=== PATIENT | female | born 1975 | race Two or more races ===

== ENCOUNTER 2021-12-06 22:48 | Emergency (ER) | payer OTHER ==
[2021-12-06 23:01] VITALS: BP 143/102; PULSE 100; RESP 17; TEMP 99; BMI 27.8
[2021-12-06] MEDS ORDERED: ONDANSETRON 4 MG/2 ML VIAL IVPB ONE (23:10)
[2021-12-06] MEDS ORDERED: SODIUM CHLORIDE 1,000 ML IV ONE (23:14)
[2021-12-06] MEDS ORDERED: ONDANSETRON 4 MG/2 ML VIAL ONE (23:22)
== END 2021-12-07 00:09 | disposition home or self-care (01) ==
LOC: FER 22:48
PROC: 3E033GC Introduction of Other Therapeutic Substance into Peripheral Vein, Percutaneous Approach (ICD-10-PCS; principal; 2021-12-06)
DX: U07.1 COVID-19 (principal); R11.2 Nausea with vomiting, unspecified
CPT/HCPCS: 82962; 96374; 99284-25

== ENCOUNTER 2023-10-16 20:04 | Observation (INO) | payer OTHER ==
[2023-10-16 20:59] LABS: HEMATOCRIT 46.3 % (32.4-45.2); HEMOGLOBIN 15.3 G/dL (10.7-15.3); MCH 30.5 pg (25.7-33.7); MEAN CELL VOLUME 92.6 fl (80-96); MEAN PLT VOLUME 8.4 fl (7.5-11.1); PLATELET COUNT 201.6 10^3/uL (134-434); WHITE BLOOD COUNT 6.7 10^3/uL (4.0-10.8)
[2023-10-16 21:13] LABS: INR 0.87 (0.83-1.09)
[2023-10-16 21:15] LABS: ALBUMIN 4.1 g/dl (3.4-5.0); ALK PHOS 197 U/L (45-117); ANION GAP 8 mmol/L (4-13); BILIRUBIN,TOTAL 0.5 mg/dl (0.2-1); CALCIUM 9.5 mg/dl (8.5-10.1); CHLORIDE 99 mmol/L (98-107); CO2 28 mmol/L (21-32); CREATININE 0.7 mg/dl (0.6-1.3); GLUCOSE,RANDOM 345 mg/dl (74-106); MAGNESIUM 1.7 mg/dL (1.8-2.4); SGOT/AST 32 U/L (15-37); SGPT/ALT 32 U/L (7-52); SODIUM 135 mmol/L (136-145); TOT PROT 7.8 g/dl (6.4-8.2)
[2023-10-16] MEDS: SODIUM CHLORIDE 1,000 ML IV ONE (21:56)
[2023-10-16] MEDS ORDERED: INSULIN REGULAR HUMAN 100 UNITS/ML *VIAL ONE (21:59)
[2023-10-16] MEDS: INSULIN REGULAR HUMAN 100 UNITS/ML *VIAL IVPUSH STA (22:01)
[2023-10-16] MEDS ORDERED: PANTOPRAZOLE 40 MG TABLET PO ONE (23:30)
[2023-10-16] MEDS: PANTOPRAZOLE 40 MG TABLET PO ONE (23:34)
[2023-10-17 01:08] LABS: URINE APPEARANCE CLEAR; URINE BILIRUBIN NEGATIVE (NEGATIVE); URINE COLOR YELLOW; URINE GLUCOSE (UA) 3+ (NEGATIVE); URINE KETONE NEGATIVE (NEGATIVE); URINE LEUK ESTERASE NEGATIVE (NEGATIVE); URINE NITRITE NEGATIVE (NEGATIVE); URINE PROTEIN NEGATIVE (NEGATIVE); URINE UROBILINOGEN 0.2 mg/dL (0.2-1.0)
[2023-10-17] MEDS ORDERED: ACETAMINOPHEN 500 MG TABLET (FP) ONE (01:11)
[2023-10-17] MEDS ORDERED: ASPIRIN 81 MG CHEWABLE TABLETS ONE (01:11)
[2023-10-17] MEDS: ACETAMINOPHEN 500 MG TABLET (FP) PO ONE (01:15)
[2023-10-17] MEDS: ASPIRIN 81 MG CHEWABLE TABLETS PO ONE (01:16)
[2023-10-17 01:42] VITALS: RESP 18; BMI 30.1
[2023-10-17] MEDS ORDERED: DOCUSATE SODIUM 100 MG CAPSULE (FP) PO PRN (02:01)
[2023-10-17] MEDS ORDERED: ACETAMINOPHEN 325 MG TABLET (FP) PO PRN ×2 (02:01→08:49)
[2023-10-17] MEDS ORDERED: MELATONIN 5 MG TABLETS PO PRN (02:12)
[2023-10-17] MEDS: MAGNESIUM SULFATE IN WATER 2 GM/50 ML IVPB IVPB ONE (02:15)
[2023-10-17] MEDS ORDERED: MAG HYDROX/AL HYDROX/SIMETH 30 ML UNIT-DOSE CUP PO PRN (02:20)
[2023-10-17] MEDS: INSULIN ASPART SLIDING SCALE (NOVOLOG) 1 VIAL SQ SCH (06:08)
[2023-10-17 08:06] LABS: ANION GAP 6 mmol/L (4-13); CALCIUM 8.7 mg/dl (8.5-10.1); CHLORIDE 102 mmol/L (98-107); CO2 28 mmol/L (21-32); CREATININE 0.6 mg/dl (0.6-1.3); GLUCOSE,RANDOM 271 mg/dl (74-106); POTASSIUM 3.9 mmol/L (3.5-5.1); SODIUM 136 mmol/L (136-145)
[2023-10-17 09:16] LABS: BASO % 0.4 % (0-2.0); EOS % 1.4 % (0-4.5); HEMATOCRIT 40.9 % (32.4-45.2); HEMOGLOBIN 13.8 GM/dL (10.7-15.3); LYMPH % 34.2 % (8-40); MCH 30.7 pg (25.7-33.7); MCHC 33.7 g/dl (32.0-36.0); MEAN CELL VOLUME 91.2 fl (80-96); MEAN PLT VOLUME 8.7 fl (7.5-11.1); MONO % 5.3 % (3.8-10.2); NEUT % 58.7 % (42.8-82.8); PLATELET COUNT 220 10^3/uL (134-434); RBC 4.49 M/mm3 (3.60-5.2); RDW 12.4 % (11.6-15.6); WHITE BLOOD COUNT 6.5 K/mm3 (4.0-10.0)
[2023-10-17] MEDS: LOSARTAN POTASSIUM 25 MG TABLET PO SCH (09:23)
[2023-10-17] MEDS: PANTOPRAZOLE 40 MG TABLET PO SCH (09:23)
[2023-10-17] MEDS: ASPIRIN 81 MG CHEWABLE TABLETS PO SCH (09:24)
[2023-10-17] MEDS: GABAPENTIN 300 MG CAPSULE PO SCH (09:24)
[2023-10-17 09:39] LABS: N-TERMINAL BNP 69.2 pg/ml (5-125)
[2023-10-17] MEDS ORDERED: LOSARTAN POTASSIUM 25 MG TABLET PO SCH (10:00)
[2023-10-17] MEDS ORDERED: ASPIRIN 81 MG CHEWABLE TABLETS PO SCH (10:00)
[2023-10-17 12:15] VITALS: PULSE 71
[2023-10-17 14:37] VITALS: BP 121/68; TEMP 98.2
[2023-10-17] MEDS ORDERED: INSULIN ASPART SLIDING SCALE (NOVOLOG) 1 VIAL SQ ONE (17:05)
== END 2023-10-17 17:40 | disposition home or self-care (01) ==
LOC: FER 20:04 → FM/S 10-17 01:13
PROVIDERS: ADMIT Internal Medicine; ATTEND Internal Medicine
PROC: 3E013VG Introduction of Insulin into Subcutaneous Tissue, Percutaneous Approach (ICD-10-PCS; principal; 2023-10-17)
PROC: 3E033VG Introduction of Insulin into Peripheral Vein, Percutaneous Approach (ICD-10-PCS; 2023-10-17)
PROC: 3E033GC Introduction of Other Therapeutic Substance into Peripheral Vein, Percutaneous Approach (ICD-10-PCS; 2023-10-17)
DX: R07.89 Other chest pain (principal); E11.9 Type 2 diabetes mellitus without complications; I10 Essential (primary) hypertension; Z85.038 Personal history of other malignant neoplasm of large intestine; Z90.79 Acquired absence of other genital organ(s); Z91.013 Allergy to seafood
CPT/HCPCS: 0241U-QW; 36415; 71045-TC-FY; 80048; 80053; 81003; 82550; 82962; 83735; 83880; 84100; 84484; 84703; 85025; 85027; 85610; 86140; 87077; 87086; 87186; 93005; 93306-TC; 96365; 96372; 96375; 99285-25; G0378